=== PATIENT | female | born 1975 | race Caucasian/White ===

== ENCOUNTER 2017-12-30 13:37 | Emergency (ER) | payer OTHER, MEDICAID ==
[2017-12-30 17:12] LABS: ADD MAN DIFF? NO
[2017-12-30] MEDS: KETOROLAC 60 MG INJ IM (17:13)
[2017-12-30 17:14] LABS: BASOPHIL # 0.1 10^3/ul (0.0-0.1); BASOPHILS % 0.7 % (0.0-2.0); EOSINOPHILS # 0.6 10^3/ul (0.0-0.5); EOSINOPHILS % 5.7 % (0.0-7.0); HEMATOCRIT 37.3 % (37.0-47.0); HEMOGLOBIN 12.3 g/dl (12.0-16.0); LYMPHOCYTES % 20.8 % (15.0-51.0); MEAN CORPUSCULAR HEMOGLOBIN 28.2 pg (29.0-33.0); MEAN CORPUSCULAR VOLUME 85.6 fl (82.0-101.0); MEAN PLATELET VOLUME 10.8 fl (7.4-10.4); MONOCYTE # 0.7 10^3/ul (0.3-0.9); MONOCYTES % 6.7 % (0.0-11.0); NEUTROPHIL # 6.4 10^3/ul (1.6-7.5); NEUTROPHILS % 65.9 % (39.0-77.0); PLATELET COUNT 305 10^3/UL (140-415); RED BLOOD COUNT 4.36 10^6/ul (4.20-5.40); RED CELL DISTRIBUTION WIDTH 16.2 % (11.5-14.5)
[2017-12-30 17:14] LABS: WHITE BLOOD COUNT 9.8 10^3/ul (4.8-10.8)
[2017-12-30 17:29] LABS: INR 0.95; PARTIAL THROMBOPLASTIN TIME 29.7 Sec (25.0-35.0); PROTIME 12.8 Sec (11.9-14.9)
[2017-12-30 17:30] LABS: ALANINE AMINOTRANSFERASE 53 IU/L (13-69); ALBUMIN 4.1 g/dl (3.3-4.9); ALBUMIN/GLOBULIN RATIO 1.17; ALKALINE PHOSPHATASE 101 IU/L (42-121); ANION GAP 13 (8-16); ASPARTATE AMINO TRANSFERASE 39 IU/L (15-46); BILIRUBIN,INDIRECT 0.3 mg/dl (0-1.1); BILIRUBIN,TOTAL 0.3 mg/dl (0.2-1.3); BLOOD UREA NITROGEN 13 mg/dl (7-20); CALCIUM 9.3 mg/dl (8.4-10.2); CARBON DIOXIDE 28 mmol/L (21-31); CHLORIDE 104 mmol/L (97-110); CREATININE 0.83 mg/dl (0.44-1.00); GLUCOSE 104 mg/dl (70-220); POTASSIUM 4.3 mmol/L (3.5-5.1); SODIUM 141 mmol/L (135-144); TOTAL PROTEIN 7.6 g/dl (6.1-8.1)
== END 2017-12-30 18:45 | disposition home or self-care (01) ==
LOC: FTE 13:37
DX: J02.9 Acute pharyngitis, unspecified (principal); R59.0 Localized enlarged lymph nodes; R07.9 Chest pain, unspecified; Z79.82 Long term (current) use of aspirin
CPT/HCPCS: 70490; 71045; 80053; 85025; 85610; 85730; 93005; 96372; 99285-25

== ENCOUNTER 2018-03-29 14:01 | Emergency (ER) | payer OTHER ==
[2018-03-29] MEDS: predniSONE 20 MG TAB PO (14:28)
[2018-03-29] MEDS: FAMOTIDINE 20 MG TAB PO (14:29)
== END 2018-03-29 15:40 | disposition home or self-care (01) ==
LOC: E/R 14:01
DX: S50.861A Insect bite (nonvenomous) of right forearm, initial encounter (principal); I10 Essential (primary) hypertension; W57.XXXA Bitten or stung by nonvenomous insect and other nonvenomous arthropods, initial encounter; Y92.9 Unspecified place or not applicable; Z79.82 Long term (current) use of aspirin
CPT/HCPCS: 99291-25; J7512

== ENCOUNTER 2018-05-10 15:34 | Emergency (ER) | payer OTHER ==
[2018-05-10] MEDS: IBUPROFEN 800 MG TAB PO (17:11)
== END 2018-05-10 17:15 | disposition home or self-care (01) ==
LOC: FTE 15:34
DX: S29.011A Strain of muscle and tendon of front wall of thorax, initial encounter (principal); I10 Essential (primary) hypertension; X58.XXXA Exposure to other specified factors, initial encounter; Y92.9 Unspecified place or not applicable; Z79.82 Long term (current) use of aspirin
CPT/HCPCS: 93005; 99283; Z7502

== ENCOUNTER 2018-06-21 22:58 | Emergency (ER) | payer OTHER ==
[2018-06-22 00:15] LABS: ADD MAN DIFF? NO
[2018-06-22] MEDS: IBUPROFEN 600 MG TAB PO (00:17)
[2018-06-22] MEDS: CLINDAMYCIN 300 MG CAP PO (00:17)
[2018-06-22 00:21] LABS: BASOPHIL # 0.1 10^3/ul (0.0-0.1); BASOPHILS % 0.5 % (0.0-2.0); EOSINOPHILS # 0.7 10^3/ul (0.0-0.5); EOSINOPHILS % 6.1 % (0.0-7.0); HEMATOCRIT 36.3 % (37.0-47.0); HEMOGLOBIN 12.3 g/dl (12.0-16.0); LYMPHOCYTES # 1.9 10^3/ul (0.8-2.9); LYMPHOCYTES % 17.1 % (15.0-51.0); MEAN CORPUSCULAR HGB CONC 33.9 g/dl (32.0-37.0); MEAN CORPUSCULAR VOLUME 82.5 fl (82.0-101.0); MEAN PLATELET VOLUME 11.5 fl (7.4-10.4); MONOCYTE # 1.3 10^3/ul (0.3-0.9); MONOCYTES % 11.8 % (0.0-11.0); NEUTROPHIL # 7.1 10^3/ul (1.6-7.5); NEUTROPHILS % 64.3 % (39.0-77.0); PLATELET COUNT 262 10^3/UL (140-415); RED CELL DISTRIBUTION WIDTH 13.3 % (11.5-14.5)
[2018-06-22 00:32] LABS: URINE BLOOD (Dip) POC 1+ (NEGATIVE); URINE GLUCOSE (Dip) POC Negative (NEGATIVE); URINE KETONES (Dip) POC Negative (NEGATIVE); URINE LEUKOCYTE EST (Dip) POC Negative (NEGATIVE); URINE NITRITE (Dip) POC Negative (NEGATIVE); URINE TOTAL PROTEIN POC Negative (NEGATIVE)
[2018-06-22 00:44] LABS: ALANINE AMINOTRANSFERASE 36 IU/L (13-69); ALBUMIN 3.8 g/dl (3.3-4.9); ALBUMIN/GLOBULIN RATIO 1.08; ALKALINE PHOSPHATASE 111 IU/L (42-121); ANION GAP 12 (8-16); ASPARTATE AMINO TRANSFERASE 34 IU/L (15-46); BILIRUBIN,INDIRECT 0.3 mg/dl (0-1.1); BILIRUBIN,TOTAL 0.3 mg/dl (0.2-1.3); BLOOD UREA NITROGEN 18 mg/dl (7-20); CALCIUM 9.3 mg/dl (8.4-10.2); CARBON DIOXIDE 32 mmol/L (21-31); CHLORIDE 100 mmol/L (97-110); CREATININE 0.87 mg/dl (0.44-1.00); GLUCOSE 109 mg/dl (70-220); SODIUM 140 mmol/L (135-144); TOTAL PROTEIN 7.3 g/dl (6.1-8.1)
== END 2018-06-22 02:07 | disposition home or self-care (01) ==
LOC: FTE 06-22 02:07
DX: L03.115 Cellulitis of right lower limb (principal); I10 Essential (primary) hypertension; F17.210 Nicotine dependence, cigarettes, uncomplicated; Z79.82 Long term (current) use of aspirin
CPT/HCPCS: 36415; 80053; 81003; 81025; 85025; 87040; 93971; 99284-25

== ENCOUNTER 2018-08-01 17:44 | Inpatient (IN) | payer OTHER ==
[2018-08-01] MEDS: LIDOCAINE/MYLANTA 40 ML BTL PO (20:36)
[2018-08-01] MEDS: ASPIRIN 325 MG TAB PO (20:36)
[2018-08-01 20:41] LABS: ABNORMAL IP MESSAGE 1; HEMATOCRIT 35.7 % (37.0-47.0); MEAN CORPUSCULAR HGB CONC 33.6 g/dl (32.0-37.0); MEAN CORPUSCULAR VOLUME 83.4 fl (82.0-101.0); MEAN PLATELET VOLUME 11.2 fl (7.4-10.4); PLATELET COUNT 59 10^3/UL (140-415); RED BLOOD COUNT 4.28 10^6/ul (4.20-5.40); RED CELL DISTRIBUTION WIDTH 13.2 % (11.5-14.5)
[2018-08-01 20:41] LABS: WHITE BLOOD COUNT 9.5 10^3/ul (4.8-10.8)
[2018-08-01 20:49] LABS: ADD MAN DIFF? YES; POSITIVE DIFF @See below
[2018-08-01 20:57] LABS: ANION GAP 11 (8-16); BLOOD UREA NITROGEN 15 mg/dl (7-20); CALCIUM 9.3 mg/dl (8.4-10.2); CARBON DIOXIDE 29 mmol/L (21-31); CHLORIDE 105 mmol/L (97-110); CREATININE 0.84 mg/dl (0.44-1.00); GLUCOSE 93 mg/dl (70-220); POTASSIUM 4.1 mmol/L (3.5-5.1); SODIUM 141 mmol/L (135-144)
[2018-08-01 21:10] LABS: B-TYPE NATRIURETIC PEPTIDE 116 PG/ML (0-125); TROPONIN-I < 0.012 ng/ml (0.000-0.120)
[2018-08-01 21:17] LABS: ANISOCYTOSIS 2+ (0-0); EOSINOPHILS % (M) 1 % (0-7); ERYTHROBLAST% (NRBC) (M) 2 % (0-0); GIANT THROMBO% (M) 1 % (0-0); LYMPHOCYTES #M 1.6 10^3/ul (0.8-2.9); LYMPHOCYTES % (M) 17 % (15-51); MICROCYTOSIS 2+ (0-0); MONOCYTE #M 0.3 10^3/ul (0.3-0.9); MONOCYTES % (M) 4 % (0-11); PLATELET ESTIMATE DECREASED; POIKILOCYTOSIS 1+ (0-0); POLYCHROMASIA 2+ (0-0); SEGMENTED NEUTROPHILS (M) % 78 % (39-77)
[2018-08-02] MEDS ORDERED: NITROGLYCERIN (SL) 0.4 MG TAB SL (01:00)
[2018-08-02] MEDS ORDERED: ONDANSETRON 4 MG INJ IV (01:00)
[2018-08-02] MEDS ORDERED: NACL 0.9% 3 ML SYG IV (01:00)
[2018-08-02] MEDS ORDERED: ALBUTEROL/IPRATROPIUM (NEB) 3 ML AMP HHN (01:00)
[2018-08-02] MEDS ORDERED: NAPROXEN 500 MG TAB PO (01:00)
[2018-08-02] MEDS: NITROGLYCERIN (SL) 0.4 MG TAB SL ×3 (02:40→04:55)
[2018-08-02 04:08] LABS: ADD MAN DIFF? NO
[2018-08-02 04:13] LABS: ABNORMAL IP MESSAGE 1; BASOPHIL # 0.1 10^3/ul (0.0-0.1); BASOPHILS % 0.7 % (0.0-2.0); EOSINOPHILS # 0.3 10^3/ul (0.0-0.5); EOSINOPHILS % 2.9 % (0.0-7.0); HEMATOCRIT 35.2 % (37.0-47.0); HEMOGLOBIN 11.9 g/dl (12.0-16.0); LYMPHOCYTES # 2.5 10^3/ul (0.8-2.9); MEAN CORPUSCULAR HEMOGLOBIN 27.9 pg (29.0-33.0); MEAN CORPUSCULAR HGB CONC 33.8 g/dl (32.0-37.0); MEAN CORPUSCULAR VOLUME 82.6 fl (82.0-101.0); MEAN PLATELET VOLUME 11.4 fl (7.4-10.4); MONOCYTE # 0.9 10^3/ul (0.3-0.9); MONOCYTES % 9.9 % (0.0-11.0); NEUTROPHILS % 57.2 % (39.0-77.0); PLATELET COUNT 57 10^3/UL (140-415); RED BLOOD COUNT 4.26 10^6/ul (4.20-5.40); RED CELL DISTRIBUTION WIDTH 13.2 % (11.5-14.5)
[2018-08-02 04:13] LABS: WHITE BLOOD COUNT 8.8 10^3/ul (4.8-10.8)
[2018-08-02 04:15] LABS: POSITIVE DIFF @See below
[2018-08-02 04:37] LABS: ALANINE AMINOTRANSFERASE 41 IU/L (13-69); ALBUMIN 3.5 g/dl (3.3-4.9); ALBUMIN/GLOBULIN RATIO 1.25; ALKALINE PHOSPHATASE 90 IU/L (42-121); ANION GAP 11 (8-16); ASPARTATE AMINO TRANSFERASE 34 IU/L (15-46); BILIRUBIN,INDIRECT 0.6 mg/dl (0-1.1); BILIRUBIN,TOTAL 0.6 mg/dl (0.2-1.3); BLOOD UREA NITROGEN 13 mg/dl (7-20); CALCIUM 8.9 mg/dl (8.4-10.2); CARBON DIOXIDE 31 mmol/L (21-31); CHLORIDE 104 mmol/L (97-110); CHOL/HDL RATIO 3.4 RATIO; CHOLESTEROL 109 mg/dl (100-200); CREATINE KINASE 45 IU/L (23-200); CREATININE 0.81 mg/dl (0.44-1.00); GLUCOSE 94 mg/dl (70-220); HDL CHOLESTEROL 32 mg/dl (34-88); LDL CHOLESTEROL,CALCULATED 45 mg/dl; MAGNESIUM 1.6 mg/dl (1.7-2.5); POTASSIUM 3.8 mmol/L (3.5-5.1); SODIUM 142 mmol/L (135-144); TOTAL PROTEIN 6.3 g/dl (6.1-8.1); TRIGLYCERIDES 159 mg/dl (0-149)
[2018-08-02 04:42] LABS: CK INDEX 1.7; CK-MB 0.76 ng/ml (0.0-2.4); TROPONIN-I 0.021 ng/ml (0.000-0.120)
[2018-08-02] MEDS: LORAZEPAM 1 MG TAB PO ×2 (05:03→08:52)
[2018-08-02] MEDS: morphine 4 MG/ML VIAL IV ×2 (05:03→05:45)
[2018-08-02] MEDS: MAGNESIUM SULFATE 2 GM/50 ML 50 ML IVPB ×2 (05:52→12:33)
[2018-08-02] MEDS: ASPIRIN (EC) 81 MG TAB PO (08:41)
[2018-08-02] MEDS: CITALOPRAM 20 MG TAB PO (08:42)
[2018-08-02] MEDS: AMLODIPINE 2.5 MG TAB PO (08:43)
[2018-08-02] MEDS: ENOXAPARIN 40 MG/0.4 ML SYG SC (08:50)
[2018-08-02 10:23] LABS: CREATINE KINASE 48 IU/L (23-200)
[2018-08-02 10:34] LABS: CK INDEX 1.4; CK-MB 0.67 ng/ml (0.0-2.4); TROPONIN-I 0.013 ng/ml (0.000-0.120)
[2018-08-02] MEDS: EMTRICITABINE/TENOFOVIR TAB PO (10:43)
[2018-08-02 16:13] LABS: MAGNESIUM 2.5 mg/dl (1.7-2.5)
[2018-08-02] MEDS: SOD CHLORIDE 0.9% 100 ML (16:36)
[2018-08-02] MEDS: IOHEXOL 100 ML (16:36)
[2018-08-02] MEDS: ACETAMINOPHEN 325 MG TAB PO (18:28)
[2018-08-02] MEDS: ATORVASTATIN 80 MG TAB PO (21:31)
[2018-08-02] MEDS: traZODone 100 MG TAB PO (21:31)
[2018-08-03 07:16] LABS: ADD MAN DIFF? NO
[2018-08-03 07:23] LABS: ABNORMAL IP MESSAGE 1; BASOPHIL # 0.1 10^3/ul (0.0-0.1); BASOPHILS % 0.7 % (0.0-2.0); EOSINOPHILS # 0.3 10^3/ul (0.0-0.5); EOSINOPHILS % 3.8 % (0.0-7.0); HEMATOCRIT 35.9 % (37.0-47.0); HEMOGLOBIN 12.1 g/dl (12.0-16.0); LYMPHOCYTES # 2.4 10^3/ul (0.8-2.9); LYMPHOCYTES % 35.9 % (15.0-51.0); MEAN CORPUSCULAR HEMOGLOBIN 28.3 pg (29.0-33.0); MEAN CORPUSCULAR HGB CONC 33.7 g/dl (32.0-37.0); MEAN CORPUSCULAR VOLUME 83.9 fl (82.0-101.0); MONOCYTE # 0.7 10^3/ul (0.3-0.9); MONOCYTES % 10.6 % (0.0-11.0); NEUTROPHIL # 3.3 10^3/ul (1.6-7.5); NEUTROPHILS % 48.9 % (39.0-77.0); PLATELET COUNT 86 10^3/UL (140-415); RED BLOOD COUNT 4.28 10^6/ul (4.20-5.40); RED CELL DISTRIBUTION WIDTH 13.4 % (11.5-14.5)
[2018-08-03 07:23] LABS: WHITE BLOOD COUNT 6.8 10^3/ul (4.8-10.8)
[2018-08-03 07:41] LABS: POSITIVE DIFF @See below
[2018-08-03 07:51] LABS: ANION GAP 12 (8-16); BLOOD UREA NITROGEN 15 mg/dl (7-20); CALCIUM 8.3 mg/dl (8.4-10.2); CARBON DIOXIDE 29 mmol/L (21-31); CHLORIDE 106 mmol/L (97-110); CREATININE 0.91 mg/dl (0.44-1.00); GLUCOSE 94 mg/dl (70-220); POTASSIUM 3.7 mmol/L (3.5-5.1); SODIUM 143 mmol/L (135-144)
[2018-08-03] MEDS: ASPIRIN (EC) 81 MG TAB PO (08:53)
[2018-08-03] MEDS: AMLODIPINE 2.5 MG TAB PO (08:53)
[2018-08-03] MEDS: LORAZEPAM 1 MG TAB PO (08:53)
[2018-08-03] MEDS: EMTRICITABINE/TENOFOVIR TAB PO (08:53)
[2018-08-03] MEDS: CITALOPRAM 20 MG TAB PO (08:53)
== END 2018-08-03 12:45 | disposition home or self-care (01) | DRG 313 ==
LOC: E/R 17:44 → TEL 08-02
DX: R07.89 Other chest pain (principal); B20 Human immunodeficiency virus [HIV] disease; D69.6 Thrombocytopenia, unspecified; E83.42 Hypomagnesemia; F64.0 Transsexualism; I10 Essential (primary) hypertension; F41.9 Anxiety disorder, unspecified; K21.9 Gastro-esophageal reflux disease without esophagitis; F17.210 Nicotine dependence, cigarettes, uncomplicated; Z79.82 Long term (current) use of aspirin
CPT/HCPCS: 36415; 70450; 70496; 70498; 71045; 80048; 80053; 80061; 82550; 82553; 83036; 83735; 83880; 84443; 84484; 85025; 93005; 93306; 99285-25

== ENCOUNTER 2018-10-07 05:36 | Inpatient (IN) | payer OTHER ==
[2018-10-07 06:40] LABS: ADD MAN DIFF? NO
[2018-10-07 06:44] LABS: WHITE BLOOD COUNT 11.5 10^3/ul (4.8-10.8)
[2018-10-07 06:44] LABS: BASOPHIL # 0.1 10^3/ul (0.0-0.1); BASOPHILS % 0.4 % (0.0-2.0); EOSINOPHILS # 0.3 10^3/ul (0.0-0.5); EOSINOPHILS % 2.2 % (0.0-7.0); HEMATOCRIT 35.2 % (37.0-47.0); LYMPHOCYTES # 1.1 10^3/ul (0.8-2.9); LYMPHOCYTES % 9.7 % (15.0-51.0); MEAN CORPUSCULAR HEMOGLOBIN 27.5 pg (29.0-33.0); MEAN CORPUSCULAR HGB CONC 34.1 g/dl (32.0-37.0); MEAN CORPUSCULAR VOLUME 80.7 fl (82.0-101.0); MEAN PLATELET VOLUME 10.2 fl (7.4-10.4); MONOCYTE # 0.9 10^3/ul (0.3-0.9); MONOCYTES % 7.4 % (0.0-11.0); NEUTROPHIL # 9.1 10^3/ul (1.6-7.5); NEUTROPHILS % 79.3 % (39.0-77.0); PLATELET COUNT 105 10^3/UL (140-415); RED BLOOD COUNT 4.36 10^6/ul (4.20-5.40); RED CELL DISTRIBUTION WIDTH 13.4 % (11.5-14.5)
[2018-10-07] MEDS: IBUPROFEN 800 MG TAB PO (06:48)
[2018-10-07 07:01] LABS: ADD UMIC YES; UR ASCORBIC ACID NEGATIVE (NEGATIVE); UR BILIRUBIN (Dip) NEGATIVE (NEGATIVE); UR BLOOD (Dip) 1+ mg/dL (NEGATIVE); UR CALCIUM OXALATE CRYSTAL MANY /HPF (NONE SEEN); UR CLARITY SLIGHTLY CLOUDY (CLEAR); UR COLOR YELLOW (YELLOW); UR GLUCOSE (Dip) NEGATIVE (NEGATIVE); UR KETONES (Dip) 1+ mg/dL (NEGATIVE); UR LEUKOCYTE ESTERASE (Dip) NEGATIVE Leu/ul (NEGATIVE); UR MUCUS MANY /HPF (NONE SEEN); UR NITRITE (Dip) NEGATIVE (NEGATIVE); UR RBC 23 /HPF (0-5); UR SPECIFIC GRAVITY (Dip) 1.036 (1.003-1.030); UR SQUAMOUS EPITHELIAL CELL FEW /HPF (FEW); UR TOTAL PROTEIN (Dip) 1+ mg/dl (NEGATIVE); UR UROBILINOGEN (Dip) 2+ mg/dL (NEGATIVE); UR WBC 3 /HPF (0-5)
[2018-10-07 07:04] LABS: ALANINE AMINOTRANSFERASE 44 IU/L (13-69); ALBUMIN/GLOBULIN RATIO 1.53; ALKALINE PHOSPHATASE 105 IU/L (42-121); ANION GAP 10 (5-13); ASPARTATE AMINO TRANSFERASE 38 IU/L (15-46); BILIRUBIN,INDIRECT 0.2 mg/dl (0-1.1); BILIRUBIN,TOTAL 0.2 mg/dl (0.2-1.3); BLOOD UREA NITROGEN 18 mg/dl (7-20); CALCIUM 8.7 mg/dl (8.4-10.2); CARBON DIOXIDE 29 mmol/L (21-31); CHLORIDE 104 mmol/L (97-110); CREATININE 0.89 mg/dl (0.44-1.00); Estimated GFR > 60 mL/min (>60); GLUCOSE 135 mg/dl (70-220); POTASSIUM 3.9 mmol/L (3.5-5.1); SODIUM 143 mmol/L (135-144); TOTAL PROTEIN 6.6 g/dl (6.1-8.1)
[2018-10-07 07:15] LABS: TROPONIN-I 0.072 ng/ml (0.000-0.120)
[2018-10-07] MEDS: FAMOTIDINE 20 MG INJ IV (08:26)
[2018-10-07] MEDS: SOD CHLORIDE 0.9% 1,000 ML IV ×2 (08:26→13:07)
[2018-10-07] MEDS: LIDOCAINE/MYLANTA 40 ML BTL PO (08:26)
[2018-10-07] MEDS: LORAZEPAM 2 MG INJ IV (08:26)
[2018-10-07] MEDS: ASPIRIN 81 MG TAB PO (09:27)
[2018-10-07] MEDS: ONDANSETRON 4 MG INJ IV (09:27)
[2018-10-07] MEDS: morphine 2 MG INJ IV (09:28)
[2018-10-07] MEDS ORDERED: ONDANSETRON 4 MG INJ IV (10:00)
[2018-10-07] MEDS ORDERED: ACETAMINOPHEN 325 MG TAB PO (10:00)
[2018-10-07] MEDS ORDERED: DOCUSATE SODIUM 100 MG CAP PO (12:30)
[2018-10-07] MEDS ORDERED: NITROGLYCERIN (SL) 0.4 MG TAB SL (12:30)
[2018-10-07] MEDS ORDERED: NACL 0.9% 3 ML SYG IV (12:30)
[2018-10-07] MEDS ORDERED: LORAZEPAM 0.5 MG TAB PO (12:30)
[2018-10-07] MEDS: ACETAMINOPHEN 325 MG TAB PO (13:45)
[2018-10-07 13:48] LABS: CREATINE KINASE 88 IU/L (23-200)
[2018-10-07 14:01] LABS: CK INDEX 5.5; CK-MB 4.83 ng/ml (0.0-2.4)
[2018-10-07 14:12] LABS: TROPONIN-I 0.343 ng/ml (0.000-0.120)
[2018-10-07] MEDS: METOPROLOL 25 MG TAB PO ×2 (15:00→21:00)
[2018-10-07 19:10] LABS: CREATINE KINASE 173 IU/L (23-200)
[2018-10-07 19:23] LABS: CK INDEX 8.3
[2018-10-07] MEDS: ATORVASTATIN 80 MG TAB PO (21:34)
[2018-10-07] MEDS: traZODone 100 MG TAB PO (21:37)
[2018-10-08 05:35] LABS: ADD MAN DIFF? NO
[2018-10-08 05:58] LABS: BASOPHIL # 0.1 10^3/ul (0.0-0.1); BASOPHILS % 0.6 % (0.0-2.0); EOSINOPHILS # 0.5 10^3/ul (0.0-0.5); EOSINOPHILS % 5.2 % (0.0-7.0); HEMATOCRIT 32.4 % (37.0-47.0); LYMPHOCYTES # 3.1 10^3/ul (0.8-2.9); LYMPHOCYTES % 34.5 % (15.0-51.0); MEAN CORPUSCULAR HEMOGLOBIN 27.7 pg (29.0-33.0); MEAN CORPUSCULAR VOLUME 81.6 fl (82.0-101.0); MEAN PLATELET VOLUME 10.7 fl (7.4-10.4); MONOCYTE # 0.9 10^3/ul (0.3-0.9); MONOCYTES % 9.6 % (0.0-11.0); NEUTROPHIL # 4.5 10^3/ul (1.6-7.5); NEUTROPHILS % 49.9 % (39.0-77.0); PLATELET COUNT 104 10^3/UL (140-415); RED BLOOD COUNT 3.97 10^6/ul (4.20-5.40); RED CELL DISTRIBUTION WIDTH 13.8 % (11.5-14.5)
[2018-10-08 05:59] LABS: ALANINE AMINOTRANSFERASE 34 IU/L (13-69); ALBUMIN/GLOBULIN RATIO 1.36; ALKALINE PHOSPHATASE 72 IU/L (42-121); ANION GAP 5 (5-13); ASPARTATE AMINO TRANSFERASE 44 IU/L (15-46); BILIRUBIN,INDIRECT 0.1 mg/dl (0-1.1); BILIRUBIN,TOTAL 0.1 mg/dl (0.2-1.3); BLOOD UREA NITROGEN 15 mg/dl (7-20); CALCIUM 7.9 mg/dl (8.4-10.2); CARBON DIOXIDE 27 mmol/L (21-31); CHLORIDE 109 mmol/L (97-110); CHOL/HDL RATIO 3.4 RATIO; CHOLESTEROL 108 mg/dl (100-200); CREATININE 0.76 mg/dl (0.44-1.00); Estimated GFR > 60 mL/min (>60); GLUCOSE 101 mg/dl (70-220); HDL CHOLESTEROL 31 mg/dl (34-88); LDL CHOLESTEROL,CALCULATED 39 mg/dl; MAGNESIUM 1.7 mg/dl (1.7-2.5); PHOSPHORUS 3.1 mg/dl (2.5-4.9); SODIUM 141 mmol/L (135-144); TOTAL PROTEIN 5.2 g/dl (6.1-8.1); TRIGLYCERIDES 188 mg/dl (0-149)
[2018-10-08 05:59] LABS: HEMOGLOBIN A1C 4.9 % (0-5.9)
[2018-10-08] MEDS: PANTOPRAZOLE (EC) 40 MG TAB PO (06:00)
[2018-10-08 06:24] LABS: THYROID STIMULATING HORMONE 0.837 MIU/L (0.465-4.680)
[2018-10-08] MEDS ORDERED: HEPARIN 1000 UNITS/ML 10 ML INJ IV (09:00)
[2018-10-08] MEDS: SOD CHLORIDE 0.9% 1,000 ML IV (09:15)
[2018-10-08] MEDS: ASPIRIN 81 MG TAB PO (09:15)
[2018-10-08] MEDS: CITALOPRAM 20 MG TAB PO (09:16)
[2018-10-08] MEDS: DOLUTEGRAVIR SODIUM 50 MG TABLET PO (09:16)
[2018-10-08] MEDS: METOPROLOL 25 MG TAB PO ×2 (09:16→21:00)
[2018-10-08] MEDS: EMTRICITABINE/TENOFOVIR TAB PO (09:17)
[2018-10-08 09:42] LABS: ADD MAN DIFF? NO
[2018-10-08 09:48] LABS: ABNORMAL IP MESSAGE 1
[2018-10-08 09:49] LABS: POSITIVE DIFF @See below
[2018-10-08 09:50] LABS: BASOPHILS % 0.5 % (0.0-2.0); EOSINOPHILS # 0.5 10^3/ul (0.0-0.5); EOSINOPHILS % 5.6 % (0.0-7.0); HEMATOCRIT 33.1 % (37.0-47.0); HEMOGLOBIN 11.4 g/dl (12.0-16.0); LYMPHOCYTES % 36.3 % (15.0-51.0); MEAN CORPUSCULAR HEMOGLOBIN 28.2 pg (29.0-33.0); MEAN CORPUSCULAR HGB CONC 34.4 g/dl (32.0-37.0); MEAN CORPUSCULAR VOLUME 81.9 fl (82.0-101.0); MEAN PLATELET VOLUME 11.4 fl (7.4-10.4); MONOCYTE # 0.8 10^3/ul (0.3-0.9); MONOCYTES % 9.8 % (0.0-11.0); NEUTROPHIL # 3.9 10^3/ul (1.6-7.5); NEUTROPHILS % 47.7 % (39.0-77.0); PLATELET COUNT 100 10^3/UL (140-415); RED BLOOD COUNT 4.04 10^6/ul (4.20-5.40); RED CELL DISTRIBUTION WIDTH 13.7 % (11.5-14.5)
[2018-10-08 09:50] LABS: WHITE BLOOD COUNT 8.2 10^3/ul (4.8-10.8)
[2018-10-08 10:04] LABS: INR 0.99; PROTIME 13.2 Sec (11.9-14.9)
[2018-10-08 10:05] LABS: PARTIAL THROMBOPLASTIN TIME 26.9 Sec (23.0-35.0)
[2018-10-08] MEDS: HEPARIN 1000 UNITS/ML 10 ML INJ IV (10:58)
[2018-10-08] MEDS: HEPARIN 25000 UNITS/250 ML 250 ML IV (11:02)
[2018-10-08] MEDS: ONDANSETRON 4 MG TAB PO (12:24)
[2018-10-08 13:02] LABS: LYMPHOCYTE - % CD4 (HELPER) 47 % (30-61); LYMPHOCYTE - %CD8 (SUPPRESSOR) 30 % (12-42); LYMPHOCYTE - ABSOLUTE 1635 cells/uL (850-3900); LYMPHOCYTE - ABSOLUTE CD4 774 cells/uL (490-1740); LYMPHOCYTE - ABSOLUTE CD8 484 cells/uL (180-1170)
[2018-10-08 17:14] LABS: PARTIAL THROMBOPLASTIN TIME 45.5 Sec (23.0-35.0)
[2018-10-08] MEDS ORDERED: NITROGLYCERIN (IC) 100 MCG/ML INJ (17:53)
[2018-10-08] MEDS ORDERED: IODIXANOL LOCM 100 ML BTL (17:53)
[2018-10-08] MEDS ORDERED: HEPARIN 1000 UNITS/ML 10 ML INJ (17:53)
[2018-10-08] MEDS ORDERED: SOD CHLORIDE 0.9% 500 ML (17:53)
[2018-10-08] MEDS ORDERED: VERAPAMIL 5 MG INJ (17:53)
[2018-10-08] MEDS ORDERED: FENTAnyl 50 MCG/ML VIAL (17:53)
[2018-10-08] MEDS ORDERED: LIDOCAINE 2% (MDV) 20 ML INJ (17:53)
[2018-10-08] MEDS ORDERED: MIDAZOLAM 1 MG/ML 2 ML INJ (17:53)
[2018-10-08] MEDS: SOD CHLORIDE 0.9% 100 ML (20:28)
[2018-10-08] MEDS: NITROGLYCERIN AEROSOL (4.9 GM) (20:29)
[2018-10-08] MEDS: IOHEXOL 100 ML (20:29)
[2018-10-08] MEDS: ATORVASTATIN 80 MG TAB PO (21:00)
[2018-10-08] MEDS: morphine 2 MG INJ IV (23:26)
[2018-10-08] MEDS: traZODone 100 MG TAB PO (23:26)
[2018-10-09] MEDS: PANTOPRAZOLE (EC) 40 MG TAB PO (06:07)
[2018-10-09] MEDS: ACETAMINOPHEN 325 MG TAB PO (06:12)
[2018-10-09] MEDS: SOD CHLORIDE 0.9% 1,000 ML IV (06:56)
[2018-10-09] MEDS: METOPROLOL 25 MG TAB PO (08:40)
[2018-10-09] MEDS: EMTRICITABINE/TENOFOVIR TAB PO (08:41)
[2018-10-09] MEDS: CITALOPRAM 20 MG TAB PO (08:41)
[2018-10-09] MEDS: ASPIRIN 81 MG TAB PO (08:41)
[2018-10-09] MEDS: DOLUTEGRAVIR SODIUM 50 MG TABLET PO (08:41)
== END 2018-10-09 12:30 | disposition home or self-care (01) | DRG 282 ==
LOC: FTE 05:36 → 6WM 09:46
PROC: 4A023N7 Measurement of Cardiac Sampling and Pressure, Left Heart, Percutaneous Approach (ICD-10-PCS; principal; 2018-10-08 17:30)
PROC: B211YZZ Fluoroscopy of Multiple Coronary Arteries using Other Contrast (ICD-10-PCS; 2018-10-08 17:30)
PROC: B215YZZ Fluoroscopy of Left Heart using Other Contrast (ICD-10-PCS; 2018-10-08 17:30)
DX: I21.4 Non-ST elevation (NSTEMI) myocardial infarction (principal); F41.9 Anxiety disorder, unspecified; I10 Essential (primary) hypertension; E78.5 Hyperlipidemia, unspecified; I25.10 Atherosclerotic heart disease of native coronary artery without angina pectoris; F17.200 Nicotine dependence, unspecified, uncomplicated; D69.6 Thrombocytopenia, unspecified; Z79.890 Hormone replacement therapy; Z95.5 Presence of coronary angioplasty implant and graft; Z79.82 Long term (current) use of aspirin
CPT/HCPCS: 36415; 71045; 74176; 75574; 80053; 80061; 81001; 81025; 82550; 82553; 83036; 83735; 84100; 84443; 84484; 85025; 85610; 85730; 86360; 87086; 90686; 93005; 93306; 93458; 96374; 96375; 99285-25; G0378

== ENCOUNTER 2019-03-21 23:14 | Emergency (ER) | payer OTHER ==
[2019-03-22] MEDS: KETOROLAC 30 MG INJ IM (04:13)
[2019-03-22] MEDS: HYDROCODONE/APAP (5/325) TAB PO (05:04)
== END 2019-03-22 05:34 | disposition home or self-care (01) ==
LOC: E/R 23:14
DX: K08.89 Other specified disorders of teeth and supporting structures (principal); I10 Essential (primary) hypertension; Z79.82 Long term (current) use of aspirin
CPT/HCPCS: 81025; 96372; 99284-25